=== PATIENT | male | born 2000 | race Caucasian/White ===

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

== ENCOUNTER 2019-07-30 13:18 | Emergency (ER) | payer OTHER ==
[2019-07-30 13:35] VITALS: BP 119/54; PULSE 72; TEMP 99.3; BMI 21.7
--- NOTE | 2019-07-30 13:49 | PDOC ---
History of Present Illness - General Chief Complaint: Urinary Problem Stated Complaint: PRIVATE Time Seen by Provider: 07/30/19 13:39 History Source: Patient Exam Limitations: No Limitations - History of Present Illness Is this a multiple visit Asthma Patient?: No Past History - Travel Traveled outside of the country in the last 30 days: No Close contact w/someone who was outside of country & ill: No - Past Medical History Allergies/Adverse Reactions: Allergies Allergy/AdvReac Type Severity Reaction Status Date / Time lactose Allergy Intermediate STOMACH Verified 07/30/19 13:31 ARTIFICIAL FOOD COLORING Allergy Intermediate STOMACH Uncoded 07/30/19 13:31 Home Medications: Ambulatory Orders Mupirocin Ointment [Bactroban 2% Ointment -] 1 applic TP TID 5 Days #30 gr 07/30 Anemia: No Asthma: No Cancer: No Cardiac Disorders: No CVA: No COPD: No CHF: No Dementia: No Diabetes: No GI Disorders: No Disorders: No HTN: No Hypercholesterolemia: No Liver Disease: No Seizures: No Thyroid Disease: No - Psycho Social/Smoking Cessation Hx Smoking History: Never smoked Hx Alcohol Use: No Drug/Substance Use Hx: No Substance Use Type: Marijuana Review of Systems - Review of Systems Constitutional: No: Chills, Fever ABD/GI: No: Abdominal Distended : Yes: Lesions (rash in mons pubis and penile shaft). No: Burning, Dysuria, Discharge, Frequency, Flank Pain, Hematuria, Urgency, Testicular Mass, Testicular Swelling, Testicular Pain Musculoskeletal: No: Back Pain Integumentary: Yes: Rash *Physical Exam - Vital Signs Last Vital Signs Temp Pulse Resp BP Pulse Ox 99.3 F 72 16 119/54 L 100 07/30/19 13:32 07/30/19 13:32 07/30/19 13:32 07/30/19 13:32 07/30/19 13:32 - Physical Exam General Appearance: Yes: Nourished HEENT: positive: EOMI, ROSALBA Respiratory/Chest: positive: Lungs Clear, Normal Breath Sounds Cardiovascular: positive: Regular Rate, S1, S2 Gastrointestinal/Abdominal: positive: Normal Bowel Sounds, Soft Male Genitalia: positive: other (+ small indurated area in mon pubis region, no fluctance tender to touch, also tiny rash in penile shaft). negative: discharge , testicular tenderness Neurologic: positive: relay checker II-XII NML intact, Fully Oriented, Alert, Normal Mood/ Affect, Normal Response, Motor Strength /5 Medical Decision Making - Medical Decision Making 07/30/19 13:48 19 years old male presents with painful rash in the mons pubis area and also other rash noted in his penile shaft for 1 month. Patient is requesting STD testing today, reports he has had >10 sexual encounters over the past few months. Patient denies penile discharge, abdominal pain, urinary urgency, frequency or dysuria. He is sexually active with discomfort at this time labs sent safer sex counseling done 07/30/19 14:20 07/30/19 14:51 Discharge - Discharge Information Problems reviewed: Yes Clinical Impression/Diagnosis: Rash Condition: Stable Disposition: HOME - Admission No - Additional Discharge Information Prescriptions: Mupirocin Ointment [Bactroban 2% Ointment -] 1 applic TP TID 5 Days #30 gr Prescription Drug Monitoring Program (I-STOP) results: I-STOP not reviewed - Follow up/Referral Referrals: Gerardo Westbrook MD [Primary Care Provider] - - Patient Discharge Instructions Additional Instructions: Your labs were sent today. You will be contacted in a few days if there is any positive finding. Please always practice safe sex. You may return to the emergency room if worsening symptoms occurs - Post Discharge Activity
[2019-07-30 14:17] LABS: EPI CELLS 2.4 /HPF (0-5/HPF); HYALINE CASTS 16 /lpf (0-8); PH,URINE 5.5 (5.0-8.0); URINE APPEARANCE CLEAR; URINE BACTERIA 1.7 /hpf (NEGATIVE); URINE BILIRUBIN NEGATIVE (NEGATIVE); URINE COLOR YELLOW; URINE GLUCOSE (UA) NEGATIVE (NEGATIVE); URINE KETONE NEGATIVE (NEGATIVE); URINE LEUK ESTERASE 1+ (NEGATIVE); URINE NITRITE NEGATIVE (NEGATIVE); URINE PROTEIN NEGATIVE (NEGATIVE); URINE RBC 2 /hpf (0-4); URINE WBC 38 /hpf (0-5)
== END 2019-07-30 14:26 | disposition home or self-care (01) ==
LOC: JERFT 13:18
DX: R21 Rash and other nonspecific skin eruption (principal); E73.9 Lactose intolerance, unspecified; Z91.02 Food additives allergy status; Z72.51 High risk heterosexual behavior
CPT/HCPCS: 36415; 81003; 86593; 86695; 86696; 87086; 87389; 87491; 87591; 99283-25

== ENCOUNTER 2021-01-10 13:22 | Emergency (ER) | payer OTHER ==
[2021-01-10 13:37] VITALS: BP 148/52; PULSE 58; TEMP 97.8; BMI 23.6
[2021-01-10] MEDS ORDERED: IBUPROFEN 600 MG TABLET (FP) PO ONE ×2 (13:51→13:54)
[2021-01-10] MEDS ORDERED: DIPHTH,PERTUSS(ACELL),TET 0.5 ML DISP.SYRIN IM ONE ×2 (13:53→13:54)
== END 2021-01-10 14:43 | disposition home or self-care (01) ==
LOC: JER 13:22
PROC: 3E0234Z Introduction of Serum, Toxoid and Vaccine into Muscle, Percutaneous Approach (ICD-10-PCS; principal; 2021-01-10)
DX: S80.212A Abrasion, left knee, initial encounter (principal)
CPT/HCPCS: 73564-TC-LT-FY; 90471; 90715; 99284-25

== ENCOUNTER 2021-01-18 20:39 | Emergency (ER) | payer OTHER ==
[2021-01-18 20:45] VITALS: BP 94/53; PULSE 74; TEMP 98; BMI 22.9
[2021-01-18] MEDS ORDERED: ONDANSETRON 4 MG/2 ML VIAL ONE ×2 (21:43→22:05)
[2021-01-18] MEDS ORDERED: SODIUM CHLORIDE 1,000 ML IV STA (21:44)
[2021-01-18] MEDS ORDERED: ONDANSETRON 4 MG/2 ML VIAL IVPUSH ONE (21:45)
[2021-01-18 22:17] LABS: BASO % 0.1 % (0-2.0); EOS % 0.2 % (0-4.5); HEMATOCRIT 46.8 % (35.4-49); LYMPH % 4.1 % (8-40); MCH 31.3 pg (25.7-33.7); MCHC 34.2 g/dl (32.0-35.9); MEAN CELL VOLUME 91.7 fl (80-96); MONO % 3.2 % (3.8-10.2); NEUT % 92.4 % (42.8-82.8); PLATELET COUNT 244 10^3/uL (134-434); RDW 14.4 % (11.9-15.9); WHITE BLOOD COUNT 13.1 K/mm3 (4.0-10.0)
[2021-01-18 22:38] LABS: BLOOD UREA NITROGEN 21.3 mg/dL (7-18); CALCIUM 9.4 mg/dL (8.5-10.1)
[2021-01-18 22:39] LABS: ALBUMIN 4.4 g/dl (3.4-5.0); MAGNESIUM 2.1 mg/dL (1.8-2.4)
[2021-01-18 22:42] LABS: CREATININE 1.1 mg/dL (0.55-1.3)
[2021-01-18 22:43] LABS: TOT PROT 7.8 g/dl (6.4-8.2)
[2021-01-18 23:03] LABS: ANISOCYTOSIS 0; MACROCYTOSIS 0; PLATELET ESTIMATE NORMAL
== END 2021-01-19 00:35 | disposition left against medical advice (07) ==
LOC: JER 20:39
PROC: 3E033GC Introduction of Other Therapeutic Substance into Peripheral Vein, Percutaneous Approach (ICD-10-PCS; principal; 2021-01-18)
PROC: 3E0337Z Introduction of Electrolytic and Water Balance Substance into Peripheral Vein, Percutaneous Approach (ICD-10-PCS; 2021-01-18)
DX: R10.84 Generalized abdominal pain (principal); R11.14 Bilious vomiting
CPT/HCPCS: 36415; 80053; 83735; 85025; 99284-25

== ENCOUNTER 2021-10-11 12:34 | Emergency (ER) | payer OTHER ==
[2021-10-11 13:05] VITALS: BP 124/72; PULSE 88; TEMP 97.8; BMI 22.8
[2021-10-11] MEDS ORDERED: KETOROLAC TROMETHAMINE 30 MG/1 ML VIAL IM ONE (14:08)
[2021-10-11] MEDS ORDERED: BACITRACIN 15 GM TUBE TOPICAL OINTMENT TP ONE (14:08)
[2021-10-11] MEDS ORDERED: IBUPROFEN 400 MG TABLET (FP) PO ONE ×2 (14:19)
[2021-10-11] MEDS ORDERED: BACITRACIN 15 GM TUBE TOPICAL OINTMENT ONE (15:15)
== END 2021-10-11 16:46 | disposition home or self-care (01) ==
LOC: JER 12:34 → JERFT 12:34
DX: S30.810A Abrasion of lower back and pelvis, initial encounter (principal); S50.312A Abrasion of left elbow, initial encounter; V03.10XA Pedestrian on foot injured in collision with car, pick-up truck or van in traffic accident, initial encounter
CPT/HCPCS: 72131-TC; 73070-TC-LT-FY; 99284-25

== ENCOUNTER 2022-09-11 16:46 | Emergency (ER) | payer OTHER ==
[2022-09-11 17:00] VITALS: BP 117/56; PULSE 74; RESP 18; TEMP 98; BMI 49.3
[2022-09-11] MEDS ORDERED: IBUPROFEN 600 MG TABLET (FP) PO ONE ×2 (17:45→17:49)
== END 2022-09-11 18:22 | disposition home or self-care (01) ==
LOC: JER 16:46 → JERFT 16:46
DX: S92.901A Unspecified fracture of right foot, initial encounter for closed fracture (principal); W10.8XXA Fall (on) (from) other stairs and steps, initial encounter
CPT/HCPCS: 73610-TC-RT-FY; 73630-TC-RT-FY; 99283-25

== ENCOUNTER 2023-07-24 23:32 | Emergency (ER) | payer OTHER ==
[2023-07-24 23:44] VITALS: BP 111/65; PULSE 62; RESP 18; TEMP 98.2; BMI 24.2
[2023-07-25] MEDS ORDERED: LIDOCAINE 4% PATCH TP ONE (00:48)
[2023-07-25] MEDS ORDERED: ACETAMINOPHEN 325 MG TABLET (FP) ONE (00:48)
[2023-07-25] MEDS: LIDOCAINE 5% TOPICAL PATCH TP ONE (00:59)
[2023-07-25] MEDS: ACETAMINOPHEN 500 MG TABLET (FP) PO ONE (00:59)
[2023-07-25] MEDS ORDERED: LIDOCAINE PATCH REMOVAL MC SCH (22:00)
== END 2023-07-25 04:32 | disposition home or self-care (01) ==
LOC: JER 23:32
DX: R51.9 Headache, unspecified (principal); M54.2 Cervicalgia; M25.552 Pain in left hip; M25.532 Pain in left wrist; M25.571 Pain in right ankle and joints of right foot; V49.40XA Driver injured in collision with unspecified motor vehicles in traffic accident, initial encounter; Y92.410 Unspecified street and highway as the place of occurrence of the external cause
CPT/HCPCS: 70450-TC; 71045-TC-FY; 72125-TC; 73030-TC-LT-FY; 73110-TC-LT-FY; 73130-TC-LT-FY; 99284-25